=== PATIENT | male | born 1985 | race Caucasian/White ===

== ENCOUNTER 2017-02-22 20:03 | Emergency (ER) | payer MEDICARE, MEDICAID ==
[~2017-02-22] VITALS: Ht 182.9 cm; Wt 81.8 kg
[~2017-02-22 20:03] MED LIST: ARIP5TAB4 PO; RISP2TAB3 PO
[2017-02-22 21:22] LABS: URINE AMPHETAMINE SCREEN NEGATIVE (Neg); URINE BARBITUATE SCREEN NEGATIVE (Neg); URINE BENZODIAZEPINES SCREEN NEGATIVE (Neg); URINE CANNABINOID SCREEN NEGATIVE (Neg); URINE COCAINE SCREEN NEGATIVE (Neg); URINE METHADONE SCREEN NEGATIVE (Neg); URINE OPIATE SCREEN NEGATIVE (Neg); URINE PHENCYCLIDINE SCREEN NEGATIVE (Neg)
[2017-02-22] MEDS ORDERED: AZIT-57 PO (22:16)
[2017-02-22 22:23] VITALS: BP 155/85
== END 2017-02-22 22:24 | disposition home or self-care (01) ==
LOC: ER 20:04
DX: J40 Bronchitis, not specified as acute or chronic (principal); Z79.899 Other long term (current) drug therapy
CPT/HCPCS: 71046; 80305; 87502; 87503; 99285

== ENCOUNTER 2018-12-19 13:53 | Emergency (ER) | payer MEDICAID, MEDICARE ==
[~2018-12-19] VITALS: Ht 182.9 cm; Wt 78.0 kg
[2018-12-19 14:23] VITALS: BP 132/77
== END 2018-12-19 15:40 | disposition home or self-care (01) ==
LOC: ER 13:54
DX: Z00.00 Encounter for general adult medical examination without abnormal findings (principal); F41.9 Anxiety disorder, unspecified; F10.99 Alcohol use, unspecified with unspecified alcohol-induced disorder; Z56.0 Unemployment, unspecified; Z79.899 Other long term (current) drug therapy; Y90.9 Presence of alcohol in blood, level not specified
CPT/HCPCS: 99281

== ENCOUNTER 2022-03-30 13:03 | Emergency (ER) | payer MEDICARE ==
[~2022-03-30] VITALS: Ht 185.4 cm; Wt 81.4 kg
[~2022-03-30 13:03] MED LIST changes: +ARIP5TAB14 PO; -ARIP5TAB4 PO; -RISP2TAB3 PO; +RISP2TAB85 PO
[2022-03-30 15:56] VITALS: BP 130/93
== END 2022-03-30 16:44 | disposition home or self-care (01) ==
LOC: ER 13:03
DX: G89.29 Other chronic pain (principal); M54.9 Dorsalgia, unspecified; F41.9 Anxiety disorder, unspecified; Z56.0 Unemployment, unspecified; Z79.899 Other long term (current) drug therapy
CPT/HCPCS: 99281